=== PATIENT | male | born 1960 | race Caucasian/White ===

== ENCOUNTER → 2018-04-29 | Outpatient (CLI) | payer BC ==
[~2018-04-29] MED LIST: CIPRO500 MG PO; COLACE100 MG PO; FLAGYL500 MG; FLECAINIDE ACE100 MG PO; TRAZODONE HCL50 MG PO; ULTRAM 50MG50 MG PO
--- NOTE | 2018-04-29 16:24 | Diagnostic Imaging Report ---
Exam: Lumbar spine, 4 views, sacrum, 2 views History: Lumbar spondylosis Comparison: None. Findings: There are 5 nonrib-bearing lumbar-type vertebral bodies. No acute, displaced fracture or subluxation. Disc space narrowing and marginal osteophytosis at L1-2 and L2-3. No pars interarticularis defects are identified on the oblique radiographs. Sacroiliac joints are intact. Sacral foramina are intact superiorly. Inferiorly, the sacral body is obscured by rectal gas and stool. No sacral step-off on the lateral radiograph. Impression: No acute osseous abnormality. Mild degenerative disc changes of the upper lumbar spine. Signed by: Dr. Sonu Wei M.D. on 04/29/2018 4:21 PM
== END ==
LOC: RAD 15:27
PROVIDERS: ATTEND Internal Medicine
DX: M43.07 Spondylolysis, lumbosacral region (principal)
CPT/HCPCS: 72110; 72220

== ENCOUNTER 2019-03-17 19:11 | Emergency (ER) | payer BC ==
[~2019-03-17] VITALS: Ht 368.3 cm; Wt 102.1 kg
--- OUTSIDE RECORDS SUMMARY | 2019-03-17 19:13 | XMS REPORT ---
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 Allergies, Adverse Reactions, Alerts This patient has no known allergies or adverse reactions. Medications This patient has no known medications. Results Test Description Test Time Test Comments Text Results Atomic Results Result Comments SACRUM X-RAY 2018-04-29 16:19:00 [place] [id number] Patient Name: AGUSTIN HERRERA JR MR #: [id number] : 1960 Age/Sex: 58/M Req #: [id number] Adm Physician: Ordered by: DERIC ALCARAZ MD Report #: [id number] Location: [facility] Room/Bed: Procedure: [id number] DX/SACRUM X-RAY Exam Date: Exam Time: REPORT STATUS: Signed Exam: Lumbar spine, 4 views, sacrum, 2 views History: Lumbar s pondylosis Comparison: None. Findings: There are 5 nonrib-bearing lumbar-type vertebral bodies. No acute, displaced fracture or subluxation. Disc space narrowing and marginal osteophytosis at L1-2 and L2-3. No pars interarticularis defects are identified on the oblique radiographs. Sacroiliac joints are intact. Sacral foramina are intact superiorly. Inferiorly, the sacral body is obscured by rectal gas and stool. No sacral step-off on the lateral radiograph. Impression: No acute osseous abnormality. Mild degenerative disc changes of the upper lumbar spine. Signed by: Dr. Dakota Barnett M.D. on 04/29/2018 4:21 PM Dictated By: DAKOTA BARNETT MD 20 Transcribed By: DANNY on 04/29/181620 COPY TO: DERIC ALCARAZ MD SP LUMBAR, COMPLETE MIN 4VW 2018-04-29 16:19:00 [place] [id number] Patient Name: AGUSTIN HERRERA JR MR #: [id number] : 1960 Age/Sex: 58/M Req #: [id number] Adm Physician: Ordered by: EDRIC ALCARAZ MD Report #: [id number] Location: [facility] Room/Bed: Procedure: [id number] DX/SP LUMBAR, COMPLETE MIN 4VW Exam Date: Exam Time: REPORT STATUS: Signed Exam: Lumbar spine, 4 views, sacrum, 2 views History: Lumbar spondylosis Comparison: None. Findings: There are 5 nonrib-bearing lumbar-type vertebral bodies. No acute, displaced fracture or subluxation. Disc space narrowing and marginal osteophytosis at L1-2 and L2-3. No pars interarticularis defects are identified on the oblique radiographs. Sacroiliac joints are intact. Sacral foramina are intact superiorly. Inferio rly, the sacral body is obscured by rectal gas and stool. No sacral step-off on the lateral radiograph. Impression: No acute osseous abnormality. Mild degenerative disc changes of the upper lumbar spine. Signed by: Dr. Dakota Barnett M.D. on 04/29/2018 4:21 PM Dictated By: DAKOTA BARNETT MD 20 Transcribed By: DANNY on 04/29/181620 COPY TO: DERIC ALCARAZ MD
[2019-03-17] MEDS ORDERED: SODIUM CHLORIDE 0.9% 1000ML 1,000 ML IV STA (19:49)
[2019-03-17] MEDS ORDERED: MORPHINE SULFATE INJ 4 MG/ML INJ 1ML IV STA (19:49)
[2019-03-17] MEDS ORDERED: DIATRIZOATE MEGL/DIATRIZOA SOD 30 ML BTL PO ONE (19:59)
[2019-03-17] MEDS ORDERED: ONDANSETRON HCL INJ 2MG/ML 2ML 2 MG/ML VIAL IV ONE (20:00)
[2019-03-17] MEDS ORDERED: FAMOTIDINE 20 MG/2 ML VIAL IV ONE (20:00)
[2019-03-17 20:06] LABS: BASOPHILS % 0.3 % (0.0-1.0); EOSINOPHILS # (AUTO) 0.1 (0.0-0.4); EOSINOPHILS % 1.2 % (0.0-6.0); HEMATOCRIT 42.8 % (38.2-49.6); HEMOGLOBIN 15.2 g/dL (14.0-18.0); LYMPHOCYTES # (AUTO) 0.8 (1.0-3.2); LYMPHOCYTES % 10.2 % (18.0-39.1); MEAN CORPUSCULAR HEMOGLOBIN 33.3 pg (28-32); MEAN CORPUSCULAR HGB CONC 35.5 g/dL (31-35); MEAN CORPUSCULAR VOLUME 93.9 fL (81-99); MONOCYTES # (AUTO) 0.6 (0.2-0.8); MONOCYTES % 7.6 % (4.4-11.3); NEUTROPHILS # (AUTO) 6.1 (2.1-6.9); NEUTROPHILS % 80.6 % (38.7-80.0); PLATELET COUNT 170 x10e3/uL (140-360); RED BLOOD COUNT 4.56 x10e6/uL (4.3-5.7); RED CELL DISTRIBUTION WIDTH 13.2 % (11.7-14.4)
[2019-03-17 20:07] LABS: BILIRUBIN,URINE NEGATIVE (NEGATIVE); CLARITY,URINE CLEAR (CLEAR); COLOR,URINE YELLOW (YELLOW); KETONES,URINE NEGATIVE (NEGATIVE); LEUKOCYTE ESTERASE ,URINE NEGATIVE (NEGATIVE); NITRITE,URINE NEGATIVE (NEGATIVE); PROTEIN,URINE DIPSTICK NEGATIVE (NEGATIVE); URINE UROBILINOGEN 0.2 mg/dL (0.2 - 1)
[2019-03-17 20:22] LABS: EPITHELIAL CELLS,URINE FEW /LPF
[2019-03-17 20:24] LABS: ALANINE AMINOTRANSFERASE 57 IU/L (0-55); ALBUMIN/GLOBULIN RATIO 1.5 (0.8-2.0); ALKALINE PHOSPHATASE 55 IU/L (40-150); AMYLASE 48 U/L (25-125); ANION GAP 12.9 mmol/L (8-16); BLOOD UREA NITROGEN 13 mg/dL (7-26); BUN/CREATININE RATIO 13 (6-25); CALCIUM 9.4 mg/dL (8.4-10.2); CARBON DIOXIDE 26 mmol/L (22-29); CHLORIDE 103 mmol/L (98-107); CREATININE, SERUM 0.99 mg/dL (0.72-1.25); EST GLOMERULAR FILTRATION RATE > 60 ML/MIN (60-); GLUCOSE 76 mg/dL (74-118); POTASSIUM 3.9 mmol/L (3.5-5.1); SODIUM 138 mmol/L (136-145)
[2019-03-17 20:29] LABS: LIPASE < 4 U/L (8-78)
[2019-03-17] MEDS ORDERED: IOPAMIDOL 370 MG/ML 200 ML INFUS..BTL INJ ONE (20:37)
[2019-03-17] MEDS ORDERED: SODIUM CHLORIDE 0.9% 50ML 50 ML ONE (20:37)
--- NOTE | 2019-03-17 23:28 | Diagnostic Imaging Report ---
EXAM: CT Abdomen and Pelvis WITH contrast INDICATION: Abdominal pain, nausea, vomiting COMPARISON: None. TECHNIQUE: Abdomen and pelvis were scanned utilizing a multidetector helical scanner from the lung base to the pubic symphysis after administration of IV contrast. Coronal and sagittal reformations were obtained. Routine protocol was performed. Scan was performed when during portal venous phase. IV CONTRAST: 100 mL of Isovue 370 ORAL CONTRAST: Gastroview COMPLICATIONS: None RADIATION DOSE: Total DLP: 951 mGy*cm Estimated effective dose: (DLP x 0.015 x size factor) mSv CTDIvol has been reviewed. It is below the limits set by the Radiation Protocol Committee (RPC). Dose modulation, iterative reconstruction, and/or weight based adjustment of the mA/kV was utilized to reduce the radiation dose to as low as reasonably achievable. FINDINGS: LINES and TUBES: None. LOWER THORAX: Unremarkable HEPATOBILIARY: Diffuse decreased hepatic attenuation. The liver is mildly enlarged, measures 18.5 cm in craniocaudal dimension and the right midclavicular line. A 1.5 cm cyst in the superior right hepatic lobe. No focal hepatic lesions. No biliary ductal dilation. GALLBLADDER: No radio-opaque stones or sludge. No wall thickening. SPLEEN: Mild splenomegaly, measures 13.8 cm. Calcified splenic cranial limits. PANCREAS: There is fatty infiltration of the pancreas. No evidence of masses or ductal dilation. ADRENALS: No adrenal nodules KIDNEYS/URETERS: Kidneys enhance symmetrically. No hydronephrosis. No solid mass lesions. Tiny exophytic cysts in the bilateral renal superior poles. No stones. GI TRACT: No abnormal distention, wall thickening, or evidence of bowel obstruction. There are diverticula within the colon without evidence of diverticulitis. Appendix is normal. PELVIC ORGANS/BLADDER: Prostate calcifications. LYMPH NODES: No lymphadenopathy. VESSELS: Scattered minimal vascular calcifications. The main portal vein is slightly dilated up to 1.6 cm in diameter.. PERITONEUM / RETROPERITONEUM: No free air or fluid. 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 Minimal degenerative changes in the spine. SOFT TISSUES: Small left fat-containing inguinal hernia without evidence of strangulation. IMPRESSION: 1. Colonic diverticulosis without diverticulitis. 2. Hepatosplenomegaly and hepatic steatosis. Slightly dilated main portal vein can be seen with portal hypertension. Signed by: Lukas Parra DO on 03/17/2019 11:24 PM
[2019-03-17 23:59] VITALS: BP 136/70
== END 2019-03-17 23:54 | disposition home or self-care (01) ==
LOC: ER 19:11
DX: R10.84 Generalized abdominal pain (principal); R10.13 Epigastric pain; R11.2 Nausea with vomiting, unspecified; K29.00 Acute gastritis without bleeding; R19.7 Diarrhea, unspecified; I10 Essential (primary) hypertension; Z87.19 Personal history of other diseases of the digestive system
CPT/HCPCS: 36415; 74177; 80053; 81001; 82150; 83690; 83735; 85025; 99284; J7030; Q9967; J2270; J2405

== ENCOUNTER 2019-04-04 19:28 | Emergency (ER) | payer BC, OTHER ==
[~2019-04-04] VITALS: Ht 368.3 cm; Wt 102.1 kg
[2019-04-04] MEDS ORDERED: SODIUM CHLORIDE 0.9% 1000ML 1,000 ML IV STA (19:50)
[2019-04-04] MEDS ORDERED: ASPIRIN 81 MG CHEW TAB PO ONE (20:00)
[2019-04-04] MEDS ORDERED: KETOROLAC TROMETHAMINE 30 MG/ML VIAL IV NR (20:00)
[2019-04-04 20:08] LABS: BASOPHILS # (AUTO) 0.1 (0.0-0.1); BASOPHILS % 1.5 % (0.0-1.0); EOSINOPHILS # (AUTO) 0.1 (0.0-0.4); EOSINOPHILS % 2.1 % (0.0-6.0); HEMATOCRIT 41.2 % (38.2-49.6); HEMOGLOBIN 14.6 g/dL (14.0-18.0); LYMPHOCYTES # (AUTO) 1.8 (1.0-3.2); LYMPHOCYTES % 37.4 % (18.0-39.1); MEAN CORPUSCULAR HEMOGLOBIN 33.6 pg (28-32); MEAN CORPUSCULAR HGB CONC 35.4 g/dL (31-35); MEAN CORPUSCULAR VOLUME 94.9 fL (81-99); MONOCYTES # (AUTO) 0.5 (0.2-0.8); MONOCYTES % 11.4 % (4.4-11.3); NEUTROPHILS # (AUTO) 2.2 (2.1-6.9); NEUTROPHILS % 47.2 % (38.7-80.0); PLATELET COUNT 181 x10e3/uL (140-360); RED BLOOD COUNT 4.34 x10e6/uL (4.3-5.7); RED CELL DISTRIBUTION WIDTH 12.7 % (11.7-14.4)
[2019-04-04 20:09] LABS: BILIRUBIN,URINE NEGATIVE (NEGATIVE); CLARITY,URINE CLEAR (CLEAR); COLOR,URINE YELLOW (YELLOW); KETONES,URINE NEGATIVE (NEGATIVE); LEUKOCYTE ESTERASE ,URINE NEGATIVE (NEGATIVE); NITRITE,URINE NEGATIVE (NEGATIVE); PROTEIN,URINE DIPSTICK NEGATIVE (NEGATIVE); URINE UROBILINOGEN 0.2 mg/dL (0.2 - 1)
[2019-04-04] MEDS ORDERED: KETOROLAC TROMETHAMINE 30 MG/ML VIAL ONE (20:16)
[2019-04-04 20:20] LABS: BACTERIA,URINE RARE /HPF; EPITHELIAL CELLS,URINE FEW /LPF
[2019-04-04 20:30] LABS: INR 0.92; PROTHROMBIN TIME 12.9 seconds (11.9-14.5)
--- NOTE | 2019-04-04 20:30 | Diagnostic Imaging Report ---
EXAMINATION: Head CT without contrast. HISTORY:Pain in back of neck, radiates to the head. COMPARISON:None. TECHNIQUE: Multidetector axial images were obtained from the foramen magnum to the vertex without contrast. The images were reconstructed using brain and bone algorithms. Thin section brain images were reformatted into coronal and sagittal planes. Dose modulation, iterative reconstruction, and/or weight based adjustment of the mA/kV was utilized to reduce the radiation dose to as low as reasonably achievable. Intravenous contrast: None IMAGE QUALITY: Acceptable. FINDINGS: Skull/scalp: No lytic or blastic. lesions. No surgical changes. Parenchyma: Focal hypodensity in posterior and inferior aspect of left lentiform nucleus represents old lacunar infarct or prominent perivascular space. No acute hemorrhage, mass or acute major vascular territorial infarct. Arteries: No density suggestive of thrombosis. Dural sinuses: No abnormal density suggestive of thrombosis. Ventricles: No hydrocephalus or displacement. Extra-axial spaces: No abnormal density. Brain volume: Normal for age. Craniocervical junction: No mass, Chiari malformation, or basilar invagination. Sella: No mass. Paranasal/mastoid sinuses: Imaged portions unremarkable. IMPRESSION: No acute intracranial abnormality. Chronic lacunar infarct vs prominent perivascular space in left lentiform nucleus. Signed by: Dr. Sugey Palacios M.D. on 04/04/2019 8:27 PM
[2019-04-04 20:31] LABS: PARTIAL THROMBOPLASTIN TIME 31.4 seconds (23.8-35.5)
[2019-04-04 20:35] LABS: ALANINE AMINOTRANSFERASE 37 IU/L (0-55); ALBUMIN/GLOBULIN RATIO 1.4 (0.8-2.0); ALKALINE PHOSPHATASE 70 IU/L (40-150); ANION GAP 15.9 mmol/L (8-16); BLOOD UREA NITROGEN 16 mg/dL (7-26); BUN/CREATININE RATIO 13 (6-25); CALCIUM 9.9 mg/dL (8.4-10.2); CARBON DIOXIDE 22 mmol/L (22-29); CHLORIDE 107 mmol/L (98-107); CREATINE KINASE 138 IU/L (30-200); CREATININE, SERUM 1.21 mg/dL (0.72-1.25); EST GLOMERULAR FILTRATION RATE > 60 ML/MIN (60-); GLUCOSE 94 mg/dL (74-118); POTASSIUM 3.9 mmol/L (3.5-5.1); SODIUM 141 mmol/L (136-145)
[2019-04-04] MEDS ORDERED: KETOROLAC TROMETHAMINE 30 MG/ML VIAL IV STA (20:39)
[2019-04-04] MEDS ORDERED: DIPHENHYDRAMINE HCL INJ 50 MG/ML VIAL IV ONE (20:45)
[2019-04-04] MEDS ORDERED: METOCLOPRAMIDE HCL 10 MG/2ML VIAL IV ONE (20:45)
[2019-04-04 21:42] VITALS: BP 126/67
--- NOTE | 2019-04-04 22:04 | Diagnostic Imaging Report ---
EXAMINATION: CHEST SINGLE (PORTABLE) INDICATION: ^ERMD ORDER ^[id number] ^2009 ^Y COMPARISON: None FINDINGS: AP view TUBES and LINES: None. LUNGS: Lungs are well inflated. There is no evidence of pneumonia or pulmonary edema. Minimal left basilar subsegmental atelectasis. PLEURA: No pleural effusion or pneumothorax. HEART AND MEDIASTINUM: The cardiomediastinal silhouette is unremarkable. BONES AND SOFT TISSUES: No acute osseous lesion. Soft tissues are unremarkable. UPPER ABDOMEN: No free air under the diaphragm. IMPRESSION: No acute thoracic abnormality. Signed by: Dr. Hubert Vera MD on 04/04/2019 10:01 PM
== END 2019-04-04 21:50 | disposition home or self-care (01) ==
LOC: ER 19:28
DX: R00.2 Palpitations (principal); G44.219 Episodic tension-type headache, not intractable
CPT/HCPCS: 36415; 70450; 71045; 80053; 81001; 82550; 82553; 84484; 85025; 85610; 85730; 93005; 96374; 99284; J1200; J1885; J2765; J7030

== ENCOUNTER 2024-04-21 13:16 | Emergency (ER) | payer BC ==
[~2024-04-21] VITALS: Ht 185.4 cm; Wt 119.7 kg
[~2024-04-21 13:16] MED LIST changes: +CEFDINIR300 MG PO; +DICYCLOMINE HCL20 MG PO
[2024-04-21 13:18] VITALS: TEMP 97.9
[2024-04-21 13:48] VITALS: PULSE 76; RESP 15; O2SAT 97
[2024-04-21 14:04] LABS: BASOPHILS # (AUTO) 0.1 (0.0-0.1); BASOPHILS % 0.7 % (0.0-1.0); EOSINOPHILS # (AUTO) 0.1 (0.0-0.4); EOSINOPHILS % 1.3 % (0.0-6.0); HEMATOCRIT 45.3 % (38.2-49.6); LYMPHOCYTES # (AUTO) 1.8 (1.0-3.2); LYMPHOCYTES % 25.8 % (18.0-39.1); MEAN CORPUSCULAR HEMOGLOBIN 33.8 pg (28-32); MEAN CORPUSCULAR HGB CONC 33.1 g/dL (31-35); MONOCYTES # (AUTO) 0.6 (0.2-0.8); MONOCYTES % 8.9 % (4.4-11.3); NEUTROPHILS # (AUTO) 4.4 (2.1-6.9); PLATELET COUNT 162 x10e3/uL (140-360); RED BLOOD COUNT 4.44 x10e6/uL (4.3-5.7); RED CELL DISTRIBUTION WIDTH 12.9 % (11.7-14.4); WHITE BLOOD COUNT 6.98 x10e3/uL (4.8-10.8)
[2024-04-21 14:30] LABS: ALBUMIN 4.4 g/dL (3.5-5.0); ALBUMIN/GLOBULIN RATIO 1.8 (0.8-2.0); ANION GAP 14.9 mmol/L (8-16); BILIRUBIN,TOTAL 1.1 mg/dL (0.2-1.2); CALCIUM 9.7 mg/dL (8.4-10.2); CREATININE, SERUM 1.16 mg/dL (0.72-1.25); POTASSIUM 3.9 mmol/L (3.5-5.1); TOTAL PROTEIN 6.9 g/dL (6.5-8.1)
[2024-04-21] MEDS: SODIUM CHLORIDE 0.9% 1000ML 1,000 ML IV STA (14:53)
[2024-04-21] MEDS ORDERED: IOPAMIDOL 370 MG/ML 100 ML INFUS..BTL INJ ONE (14:55)
[2024-04-21] MEDS ORDERED: AMOX TR-K CLV1 EAC2 PO (16:39)
[2024-04-21] MEDS ORDERED: ONDANSETRON ODT4 MG PO (16:39)
[2024-04-21] MEDS ORDERED: DICYCLOMINE HCL20 MG PO (16:39)
== END 2024-04-21 16:53 | disposition home or self-care (01) ==
LOC: ER 13:28
DX: R10.32 Left lower quadrant pain (principal); K57.32 Diverticulitis of large intestine without perforation or abscess without bleeding; R16.0 Hepatomegaly, not elsewhere classified; I48.91 Unspecified atrial fibrillation; K21.9 Gastro-esophageal reflux disease without esophagitis; M10.9 Gout, unspecified; Z87.19 Personal history of other diseases of the digestive system
CPT/HCPCS: 36415; 74177; 80053; 85025; 93005; 99284; J2470; J7030; Q9967